=== PATIENT | male | born 1970 | race Caucasian/White ===

== ENCOUNTER 2018-09-16 18:30 | Emergency (ER) | payer BC, SELFPAY ==
[2018-09-16 18:41] VITALS: BP 112/49; PULSE 60; RESP 16; TEMP 36.6; O2SAT 100
--- NOTE | 2018-09-16 18:47 | PC.NURSE ---
pt recently traveled by car from [place]. Pt c/o right upper leg/groin pain. Pt felt SOB prior to having syncopal episode [employer]. Pt has significant cardiac hx with valve replacement. Pt takes coumadin.
--- NOTE | 2018-09-16 19:02 | DI.CT.S_ITS ---
PROCEDURE: CT HEAD/BRAIN WO CON INDICATIONS: syncope on coumadin hit head TECHNIQUE: Noncontrast 4.5 mm thick angled axial sections acquired from the foramen magnum to the vertex, with coronal and sagittal reformats. For radiation dose reduction, the following was used: automated exposure control, adjustment of mA and/or kV according to patient size. COMPARISON: None. FINDINGS: Image quality: Excellent. CSF spaces: Basal cisterns are patent. No extra-axial fluid collections. Ventricles are normal in size and shape. Brain: No midline shift. No intracranial masses or hemorrhage. Louis-white matter interface is normal. Skull and face: Calvarium and visualized facial bones are intact, without suspicious lesions. Sinuses: Visualized sinuses and mastoids are clear. IMPRESSION: No acute intracranial process. Dictated by: Issa Emmanuel M.D. on 09/16/2018 at 20:24 Approved by: Issa Emmanuel M.D. on 09/16/2018 at 20:26
--- NOTE | 2018-09-16 19:02 | DI.US.S_ITS ---
PROCEDURE: US PERIPH VENOUS LOW EXTREM RT INDICATIONS: RIGHT LEG PAIN TECHNIQUE: Real-time imaging, as well as color and pulse Doppler interrogation, were performed of the lower extremity deep veins from the inguinal ligament to the popliteal fossa. COMPARISON: None. FINDINGS: The common femoral, femoral and popliteal veins are normally compressible, and free of intraluminal thrombus. Color and pulse Doppler demonstrate normal phasic intraluminal flow. There is normal augmentation response to distal compression maneuver. IMPRESSION: No evidence of deep venous thrombosis. Dictated by: Issa Emmanuel M.D. on 09/16/2018 at 20:26 Approved by: Issa Emmanuel M.D. on 09/16/2018 at 20:27
--- NOTE | 2018-09-16 19:02 | DI.CT.S_ITS ---
PROCEDURE: CT ANGIO CHEST ABDOMEN PELVIS INDICATIONS: syncope, marfans, TECHNIQUE: Precontrast 5 mm thick sections acquired from the lung apices to the iliac crests. After the administration of intravenous contrast, 2.5 mm thick sections again acquired from the lung apices to the iliac crests. Maximum intensity projection (MIP) oblique sagittal and coronal reformats were then acquired. For radiation dose reduction, the following was used: automated exposure control. COMPARISON: None. FINDINGS: Image quality: Excellent. AORTA: No evidence of aortic aneurysm, dissection or periaortic hemorrhage. CHEST: Lungs and pleura: No acute consolidation.. No pleural effusions or pneumothorax. Central and peripheral airways are patent and normal in caliber. Mediastinum: Heart size is normal. No pericardial effusion. No mediastinal or hilar adenopathy by size criteria. Central pulmonary arteries are normal in size. Esophagus is normal in caliber. No hiatal hernias. Bones and chest wall: No axillary adenopathy by size criteria. Thyroid gland negative. No suspicious bony lesions. No vertebral body compression fractures. ABDOMEN: Vasculature: Celiac trunk and mesenteric arteries are patent. Renal arteries are also patent. Solid organs: Liver is normal in size and enhancement. Gallbladder unremarkable. Biliary system is non dilated. Pancreas enhances normally. Spleen is normal in size and enhancement. No adrenal nodules. Both kidneys are normal in size and enhancement, without hydronephrosis. Peritoneum and bowel: No free fluid or air. Bowel loops are normal in caliber and wall thickness. Nodes and vessels: No retroperitoneal or mesenteric adenopathy by size criteria. Inferior vena cava is normal in morphology. Miscellaneous: No ventral hernias. PELVIS: Genitourinary: Bladder wall thickness is normal. Miscellaneous: No inguinal hernias or adenopathy. No ventral hernias. There is fluid/blood surrounding the right iliopsoas muscle, which is enlarged and there is contrast extravasation keeping with active bleeding for example image 229 series 4, image 220 series 4. Bones: No suspicious bony lesions. No vertebral body compression fractures. IMPRESSION: Right iliopsoas intramuscular hematoma with CT evidence of active bleeding. Surrounding anterior-fascial fluid/blood. Findings were personally telephoned and discussed with Dr. Ornelas in the emergency department 09/16/18. No evidence of aortic aneurysm. No periaortic hemorrhage seen. Dictated by: Issa Emmanuel M.D. on 09/16/2018 at 20:47 Approved by: Issa Emmanuel M.D. on 09/16/2018 at 20:56
--- NOTE | 2018-09-16 19:07 | DI.US.S_ITS ---
PROCEDURE: US ARTERIAL DUPLEX LE RT INDICATIONS: PAIN IN THIGH TECHNIQUE: Color and pulse Doppler interrogation was performed of the right lower extremity arterial system, with image documentation. COMPARISON: None. FINDINGS: Common femoral artery: 143 cm/sec, with triphasic flow. Deep femoral artery: 122 cm/sec, with triphasic flow. Proximal superficial femoral artery: 148 cm/sec, with triphasic flow. Mid superficial femoral artery: 116 cm/sec, with triphasic flow. Distal superficial femoral artery: 82 cm/sec, with triphasic flow. Popliteal artery: 78 cm/sec, with triphasic flow. Posterior tibial artery: 76 cm/sec, with biphasic flow. Anterior tibial artery/dorsalis pedis: 78 cm/sec, with biphasic flow. Louis-scale imaging description: No plaque identified IMPRESSION: No evidence of focal stenosis. Dictated by: Issa Emmanuel M.D. on 09/16/2018 at 20:27 Approved by: Issa Emmanuel M.D. on 09/16/2018 at 20:29
--- NOTE | 2018-09-16 19:18 | ED.SYNCOPE ---
HPI - Syncope General Chief Complaint: Syncope Stated Complaint: LIGHT HEADED/DIZZY/COLLAPSED Time Seen by Provider: 09/16/18 18:42 Source: patient Mode of arrival: ambulatory Limitations: no limitations History of Present Illness HPI narrative: Patient is a 48-year-old male who presents with right leg pain. He has a history of Marfans and aortic valve replacement x2 on Coumadin, drove up from [place] today when he started having increasing right thigh pain. He denies any numbness or tingling in his foot he was always able to drive input on the gas pedal. When I got home this afternoon there unpacking the car he got extremely dizzy headed wanted to sit down. His made him get back up at which point he fell hitting his head and passed out for about 45 seconds. He denies any injury from the fall his bigger complaint is that he can't lift his right leg. He can move his knee and his foot however as soon as he engages his hip flexors is he has extreme pain. He has not had any fever or chills. He has no numbness or tingling in his leg. He has pain in 1 particular spot. He apparently pushed a Jeep or pulled he does not remember straining himself. -: second(s) Prodromal symptoms: palpitations, shortness of breath and diaphoresis Witnessed: yes - by bystander Injuries sustained associated with event: none Current symptoms: back to baseline Related Data Allergies Allergy/AdvReac Type Severity Reaction Status Date / Time No Known Drug Allergies Allergy Verified 09/16/18 18:45 Review of Systems Review of Systems ROS Unobtainable: All systems reviewed & are unremarkable except as noted in HPI and below Constitutional Denies chills, Denies fatigue, Denies fever(s), Denies lethargy and Denies weakness Eyes Denies change in vision, Denies eye discharge, Denies irritation and Denies loss of vision Cardiovascular Reports as per HPI, Reports syncope, Reports rapid heart rate, Denies dyspnea and Denies dyspnea on exertion Respiratory Denies cough, Denies dyspnea, Denies dyspnea on exertion and Denies wheezing Gastrointestinal Gastrointestinal: Denies abdominal pain, Denies change in bowel habits, Denies diarrhea, Denies nausea and Denies vomiting Musculoskeletal Reports as per HPI Comments: right thigh pain Integumentary/Breasts Denies pruritus, Denies erythema, Denies rash and Denies wounds Neurologic Denies confusion, Reports syncope, Denies loss of vision and Denies weakness Psychiatric Denies anxiety, Denies confusion, Denies depression, Denies homicidal ideation and Denies suicidal ideation Endocrine Denies fatigue and Denies flushing Allergic/Immunologic Denies wheezing [facility] Medical History (Updated 09/17/18 @ 01:32 by Janet Wagner DO) Marfan syndrome (Acute) Surgical History (Updated 09/17/18 @ 01:32 by Janet Wagner DO) H/O aortic valve replacement (Acute) Social History (Updated 09/17/18 @ 01:32 by Janet Wagner DO) marital status: household members: spouse Smoking Status: Never smoker alcohol intake: never substance use type: does not use Social History (Updated 09/17/18 @ 01:32 by Janet Wagner DO) marital status: household members: spouse Smoking Status: Never smoker alcohol intake: never substance use type: does not use Exam Initial Vital Signs Initial Vital Signs: Vital Signs Temperature 97.9 F 09/16/18 18:41 Pulse Rate 60 09/16/18 18:41 Respiratory Rate 16 09/16/18 18:41 Blood Pressure 112/49 L 09/16/18 18:41 Pulse Oximetry 100 09/16/18 18:41 GENERAL: He is a thin tall male slightly pale alert oriented x3 HEENT: Head atraumatic, no abrasions or contusions no depression EOMI, pupils reactive, face symmetric NECK: No vertebral tenderness no step-offs full range of motion neck is supple no JVD CARDIOVASCULAR: Regular rate and rhythm without murmurs, rubs or gallops. Vertical scar noted along sternum RESPIRATORY: Breath sounds equal bilaterally, no wheezes rales or rhonchi. ABDOMEN: Soft, nontender. Normoactive bowel sounds all 4 quadrants. No guarding or rebound. : No CVA tenderness EXTREMITIES: Normal range of motion, no clubbing or edema. Neurovascularly intact Tender right upper anterior thigh. No swelling no erythema no laceration. Strong femoral pulse. Strong distal pedal pulse. No pain with internal or external hip rotation. Knee is stable. NEUROLOGICAL: Alert and oriented x4.Normal gait and speech. Cranial nerves II through XII grossly intact. neonatal intensive care unit nurse strength equal bilaterally SKIN: Warm, dry, no laceration, no petechiae, no rashes or lesions. Procedures Orthopedic Splinting/Casting Injury #1: Side: right Lower Extremity Injury Location: upper leg Lower Extremity Immobilizer: Raymundo wrap Post splinting neuro exam: intact Post splinting vascular exam: intact Placed by: Nursing Course Orders Ordered: ED Orders 09/16/18 18:30 Complete Blood Count AUTO DIFF Stat Comprehensive Metabolic Panel Stat Prothrombin Time INR Stat Troponin & CK Cardiac Panel Stat 09/16/18 19:02 CT angio chest abdomen pelvis Stat CT head/brain wo con Stat US periph venous low extrem rt Stat 09/16/18 19:07 US arterial duplex LE RT Stat Discontinued Medications Sodium Chloride (Normal Saline 0.9%) 1,000 mls @ 1,000 mls/hr IV BOLUS ONE Stop: 09/16/18 20:01 Last Admin: 09/16/18 19:21 Dose: 1,000 mls/hr Vital Signs - 8 hr 09/16/18 18:41 09/16/18 19:30 09/16/18 20:50 Temperature 97.9 F Pulse Rate 60 64 71 Respiratory Rate 16 19 17 Blood Pressure 112/49 L Blood Pressure [Right Arm] 123/59 L 111/48 L Pulse Oximetry 100 99 97 09/16/18 21:30 09/16/18 21:42 Temperature Pulse Rate 74 77 Respiratory Rate 18 19 Blood Pressure 122/85 Blood Pressure [Right Arm] 122/55 L Pulse Oximetry 98 97 MDM - Syncope Lab Data Attestation: I reviewed the patient's lab results. Result diagrams: 09/16/18 18:30 09/16/18 18:30 Lab Results 09/16/18 09/16/18 09/16/18 Range/Units 18:30 18:30 18:30 WBC 9.9 (4.5-11.0) X10^3/uL RBC 5.03 (4.5-5.9) X10^6/uL Hgb 14.6 (13.5-17.5) g/dL Hct 43.4 (41-53) % MCV 86.2 (80-100) fL MCH 29.1 (26-34) PG MCHC 33.7 (30-36) % RDW 13.6 (11.6-14.8) % Plt Count 155 (150-400) X10^3/uL Neut % (Auto) 71.4 (50-75) % Lymph % (Auto) 16.0 L (25-40) % [place] % (Auto) 10.9 (3-14) % Eos % (Auto) 1.5 L (2-4) % Baso % (Auto) 0.2 (0-2) % Neut # (Auto) 7100 H (4492-5115) /uL Lymph # (Auto) 1600 (9976-7787) /uL [place] # (Auto) 1100 H (0-900) /uL Eos # (Auto) 200 (0-450) /uL Baso # (Auto) 0 (0-100) /uL PT 37.6 H (10.1-12.7) SECONDS INR 3.2 H (0.9-1.3) Sodium 139 (137-145) mmol/L Potassium 3.9 (3.4-5.1) mmol/L Chloride 100 (98-107) mmol/L Carbon Dioxide 28 (22-32) mmol/L BUN 16 (9-20) mg/dL Creatinine 0.90 (0.66-1.25) mg/dL Estimated GFR > 60.0 (>60) mL/min BUN/Creatinine Ratio 17.8 (6-22) Glucose 127 H (70-100) mg/dL Calcium 8.9 (8.4-10.2) mg/dL Total Bilirubin 0.9 (0.2-1.3) mg/dL AST 46 (17-59) IU/L ALT 31 (21-72) IU/L Alkaline Phosphatase 87 (38-126) U/L Total Creatine Kinase 231 H (55-170) U/L CK-MB (CK-2) 2.67 H (<2.37) ng/mL CK-MB (CK-2) Rel Index 1.2 L (1.5-5.0) % Troponin I < 0.012 (0.01-0.034) ng/mL Total Protein 7.8 (6.3-8.2) g/dL Albumin 4.5 (3.5-5.0) g/dL Globulin 3.3 (1.7-4.1) g/dL Albumin/Globulin Ratio 1.4 (1.0-2.8) Point of Care Testing Glucose POC [address] scan - head: Radiologist's impression: PROCEDURE: CT HEAD/BRAIN WO CON INDICATIONS: syncope on coumadin hit head TECHNIQUE: Noncontrast 4.5 mm thick angled axial sections acquired from the foramen magnum to the vertex, with coronal and sagittal reformats. For radiation dose reduction, the following was used: automated exposure control, adjustment of mA and/or kV according to patient size. COMPARISON: None. FINDINGS: Image quality: Excellent. CSF spaces: Basal cisterns are patent. No extra-axial fluid collections. Ventricles are normal in size and shape. Brain: No midline shift. No intracranial masses or hemorrhage. Louis-white matter interface is normal. Skull and face: Calvarium and visualized facial bones are intact, without suspicious lesions. Sinuses: Visualized sinuses and mastoids are clear. IMPRESSION: No acute intracranial process. Dictated by: Issa Emmanuel M.D. on 09/16/2018 at 20:24 CT Angio chest/ab/pelvis: Radiologist's impression: PROCEDURE: CT ANGIO CHEST ABDOMEN PELVIS INDICATIONS: syncope, marfans, TECHNIQUE: Precontrast 5 mm thick sections acquired from the lung apices to the iliac crests. After the administration of intravenous contrast, 2.5 mm thick sections again acquired from the lung apices to the iliac crests. Maximum intensity projection (MIP) oblique sagittal and coronal reformats were then acquired. For radiation dose reduction, the following was used: automated exposure control. COMPARISON: None. FINDINGS: Image quality: Excellent. AORTA: No evidence of aortic aneurysm, dissection or periaortic hemorrhage. CHEST: Lungs and pleura: No acute consolidation.. No pleural effusions or pneumothorax. Central and peripheral airways are patent and normal in caliber. Mediastinum: Heart size is normal. No pericardial effusion. No mediastinal or hilar adenopathy by size criteria. Central pulmonary arteries are normal in size. Esophagus is normal in caliber. No hiatal hernias. Bones and chest wall: No axillary adenopathy by size criteria. Thyroid gland negative. No suspicious bony lesions. No vertebral body compression fractures. ABDOMEN: Vasculature: Celiac trunk and mesenteric arteries are patent. Renal arteries are also patent. Solid organs: Liver is normal in size and enhancement. Gallbladder unremarkable. Biliary system is non dilated. Pancreas enhances normally. Spleen is normal in size and enhancement. No adrenal nodules. Both kidneys are normal in size and enhancement, without hydronephrosis. Peritoneum and bowel: No free fluid or air. Bowel loops are normal in caliber and wall thickness. Nodes and vessels: No retroperitoneal or mesenteric adenopathy by size criteria. Inferior vena cava is normal in morphology. Miscellaneous: No ventral hernias. PELVIS: Genitourinary: Bladder wall thickness is normal. Miscellaneous: No inguinal hernias or adenopathy. No ventral hernias. There is fluid/blood surrounding the right iliopsoas muscle, which is enlarged and there is contrast extravasation keeping with active bleeding for example image 229 series 4, image 220 series 4. Bones: No suspicious bony lesions. No vertebral body compression fractures. IMPRESSION: Right iliopsoas intramuscular hematoma with CT evidence of active bleeding. Surrounding anterior-fascial fluid/blood. Findings were personally telephoned and discussed with Dr. Ornelas in the emergency department 09/16/18. No evidence of aortic aneurysm. No periaortic hemorrhage seen. Dictated by: Issa Emmanuel M.D. on 09/16/2018 at 20:47 Venous US: Radiologist's impression: PROCEDURE: US PERIPH VENOUS LOW EXTREM RT INDICATIONS: RIGHT LEG PAIN TECHNIQUE: Real-time imaging, as well as color and pulse Doppler interrogation, were performed of the lower extremity deep veins from the inguinal ligament to the popliteal fossa. COMPARISON: None. FINDINGS: The common femoral, femoral and popliteal veins are normally compressible, and free of intraluminal thrombus. Color and pulse Doppler demonstrate normal phasic intraluminal flow. There is normal augmentation response to distal compression maneuver. IMPRESSION: No evidence of deep venous thrombosis. Dictated by: Issa Emmanuel M.D. on 09/16/2018 at 20:26 arterial dupplex: Radiologist's impression: PROCEDURE: US ARTERIAL DUPLEX LE RT INDICATIONS: PAIN IN THIGH TECHNIQUE: Color and pulse Doppler interrogation was performed of the right lower extremity arterial system, with image documentation. COMPARISON: None. FINDINGS: Common femoral artery: 143 cm/sec, with triphasic flow. Deep femoral artery: 122 cm/sec, with triphasic flow. Proximal superficial femoral artery: 148 cm/sec, with triphasic flow. Mid superficial femoral artery: 116 cm/sec, with triphasic flow. Distal superficial femoral artery: 82 cm/sec, with triphasic flow. Popliteal artery: 78 cm/sec, with triphasic flow. Posterior tibial artery: 76 cm/sec, with biphasic flow. Anterior tibial artery/dorsalis pedis: 78 cm/sec, with biphasic flow. Louis-scale imaging description: No plaque identified IMPRESSION: No evidence of focal stenosis. Dictated by: Issa Emmanuel M.D. on 09/16/2018 at 20:27 Approved by: Issa Emmanuel M.D. on 09/16/2018 at 20:29 ECG Data Attestation: I personally reviewed and interpreted this ECG as follows: Prior ECG tracings: not available for review Interpretation: Rate 59 AK interval 149 no priors to compare some artifact noted. MDM Narrative Medical decision making narrative: The patient's biggest complaint seems to be pain in his thigh. He does not remember injuring it while moving the jeep but has quite a bit of pain which has progressively gotten worse. CT angio reveals that he does have some active bleeding and contusion noted. he does not have any sign of contusion anteriorly. Although he is quite tender. He is afebrile there is no abscess. He has no dissection, and no PE. His syncopal episode sounds like a vasovagal reaction. I discussed with he and his if he is feeling like he might pass out he needs to stay sitting instead of stand up. An Raymundo wrap was placed to help apply some pressure to stop the bleeding. He is on Coumadin. I suspect that his leg will get worse before it gets better. Discharge Plan Departure Patient Disposition: Home Clinical Impression: Vasovagal syncope Contusion Qualifiers: Encounter type: initial encounter Contusion area: thigh Laterality: right Qualified Code(s): S70.11XA - Contusion of right thigh, initial encounter Discharge Date/Time: 09/16/18 21:43 Interventions: ED Discharge Assessment Last Done: 09/16/18 21:42 Instructions: DI for Syncope in Adults (Fainting), DI for Contusion Activity Restrictions/Additional Instructions: *You have been diagnosed with vasovagal syncopal reaction. And right thigh contusion. *What to do: Apply pressure on leg to stop some bleeding. Apply ice, 20 minutes at a time *Continue to take medications as directed *Follow up with your primary care provider in 2-3 days *Return to ER if you should have recurrent syncopal episode, chest pain back pain, numbness or tingling in legs, increasing weakness or any new, worsening or concerning symptoms Stand Alone Forms: Work Release Note
[2018-09-16 19:21] LABS: INR 3.2 (0.9-1.3); Prothrombin Time 37.6 SECONDS (10.1-12.7)
[2018-09-16] MEDS: SODIUM CHLORIDE 0.9% 1,000 ML 1000 ML IV (19:21)
[2018-09-16 19:22] LABS: Add Manual Diff / Slide Review NO; Basophils Absolute Auto 0 /uL (0-100); Basophils Percent Auto 0.2 % (0-2); Eosinophils Absolute Auto 200 /uL (0-450); Eosinophils Percent Auto 1.5 % (2-4); Hematocrit 43.4 % (41-53); Hemoglobin 14.6 g/dL (13.5-17.5); Lymphocytes Absolute Auto 1600 /uL (1100-4500); Mean Corpuscular HGB Conc 33.7 % (30-36); Mean Corpuscular Hemoglobin 29.1 PG (26-34); Mean Corpuscular Volume 86.2 fL (80-100); Monocytes Absolute Auto 1100 /uL (0-900); Monocytes Percent Auto 10.9 % (3-14); Neutrophils Absolute Auto 7100 /uL (1500-7000); Neutrophils Percent Auto 71.4 % (50-75); Platelet Count 155 X10^3/uL (150-400); Red Blood Cell Count 5.03 X10^6/uL (4.5-5.9); Red Cell Distribution Width 13.6 % (11.6-14.8); White Blood Cell Count 9.9 X10^3/uL (4.5-11.0)
[2018-09-16 19:24] LABS: Alanine Aminotransferase 31 IU/L (21-72); Albumin 4.5 g/dL (3.5-5.0); Albumin Globulin Ratio 1.4 (1.0-2.8); Alkaline Phosphatase 87 U/L (38-126); Aspartate Aminotransferase 46 IU/L (17-59); BUN Creatinine Ratio 17.8 (6-22); Bilirubin Total 0.9 mg/dL (0.2-1.3); Blood Urea Nitrogen 16 mg/dL (9-20); Calcium 8.9 mg/dL (8.4-10.2); Carbon Dioxide 28 mmol/L (22-32); Chloride 100 mmol/L (98-107); Creatine Kinase 231 U/L (55-170); Estimated Glomerular Filt Rate > 60.0 mL/min (>60); Globulin 3.3 g/dL (1.7-4.1); Glucose 127 mg/dL (70-100); Potassium 3.9 mmol/L (3.4-5.1); Sodium 139 mmol/L (137-145); Total Protein 7.8 g/dL (6.3-8.2)
[2018-09-16 19:30] VITALS: BP 123/59; PULSE 64; RESP 19; O2SAT 99
[2018-09-16 19:36] LABS: Troponin I < 0.012 ng/mL (0.01-0.034)
[2018-09-16 19:39] LABS: CKMB % Relative Index 1.2 % (1.5-5.0); Creatine Kinase MB 2.67 ng/mL (<2.37); HEMOLYSIS 16 (0-50)
[2018-09-16 20:50] VITALS: BP 111/48; PULSE 71; RESP 17; O2SAT 97
[2018-09-16 21:30] VITALS: BP 122/55; PULSE 74; RESP 18; O2SAT 98
[2018-09-16 21:42] VITALS: BP 122/85; PULSE 77; RESP 19; O2SAT 97
--- NOTE | 2018-10-13 20:35 | PC.NURSE ---
Late entry: Pt received 1000ml of normal saline started on 09/16/18 at 1921. Dose was completed at 2034.
== END 2018-09-16 21:43 | disposition home or self-care (01) ==
PROVIDERS: Emergency Provider Emergency Medicine
DX: R55 Syncope and collapse (principal); W19.XXXA Unspecified fall, initial encounter; M79.661 Pain in right lower leg; Z95.2 Presence of prosthetic heart valve; Z79.01 Long term (current) use of anticoagulants
CPT/HCPCS: 36591; 70450; 71275; 74174; 80053; 82550; 82553; 82962; 84484; 85025; 85610; 93005; 93041; 93926; 93971; 96360; 99283; 99285; Q9967

== ENCOUNTER → 2018-09-18 12:16 | Outpatient (CLI) | payer BC, SELFPAY ==
[2018-09-18 13:33] LABS: Add Manual Diff / Slide Review NO; Basophils Absolute Auto 0 /uL (0-100); Basophils Percent Auto 0.3 % (0-2); Eosinophils Absolute Auto 200 /uL (0-450); Hematocrit 43.2 % (41-53); Hemoglobin 14.4 g/dL (13.5-17.5); Lymphocytes Absolute Auto 1500 /uL (1100-4500); Lymphocytes Percent Auto 17.7 % (25-40); Mean Corpuscular HGB Conc 33.4 % (30-36); Mean Corpuscular Hemoglobin 29.1 PG (26-34); Mean Corpuscular Volume 87.1 fL (80-100); Monocytes Absolute Auto 1100 /uL (0-900); Monocytes Percent Auto 13.2 % (3-14); Neutrophils Absolute Auto 5600 /uL (1500-7000); Neutrophils Percent Auto 66.8 % (50-75); Platelet Count 151 X10^3/uL (150-400); Red Blood Cell Count 4.96 X10^6/uL (4.5-5.9); Red Cell Distribution Width 13.4 % (11.6-14.8); White Blood Cell Count 8.4 X10^3/uL (4.5-11.0)
== END ==
PROVIDERS: Visit Provider Internal Medicine
DX: S70.11XA Contusion of right thigh, initial encounter (principal)
CPT/HCPCS: 36415; 85025

== ENCOUNTER → 2018-10-02 10:35 | Outpatient (CLI) | payer BC, SELFPAY ==
[2018-10-02 11:43] LABS: Prothrombin Time 23.6 SECONDS (10.1-12.7)
== END ==
PROVIDERS: Visit Provider Internal Medicine
DX: I34.9 Nonrheumatic mitral valve disorder, unspecified (principal)
CPT/HCPCS: 36415; 85610

== ENCOUNTER → 2019-07-26 10:38 | Outpatient (CLI) | payer OTHER, SELFPAY ==
[2019-07-26 11:22] LABS: Alanine Aminotransferase 22 IU/L (<50); Albumin 4.3 g/dL (3.5-5.0); Albumin Globulin Ratio 1.3 (1.0-2.8); Alkaline Phosphatase 81 U/L (38-126); Aspartate Aminotransferase 34 IU/L (17-59); BUN Creatinine Ratio 25.7 (6-22); Bilirubin Total 0.5 mg/dL (0.2-1.3); Blood Urea Nitrogen 18 mg/dL (9-20); Carbon Dioxide 34 mmol/L (22-32); Chloride 104 mmol/L (98-107); Cholesterol 173 mg/dL (140-199); Estimated Glomerular Filt Rate > 60.0 mL/min (>60); Globulin 3.3 g/dL (1.7-4.1); Glucose 89 mg/dL (70-100); HDL Cholesterol 27 mg/dL (40-60); HEMOLYSIS < 15 (0-50); LDL Cholesterol Calculated 112 mg/dL (<100); Potassium 4.4 mmol/L (3.4-5.1); Sodium 141 mmol/L (137-145); Total Protein 7.6 g/dL (6.3-8.2); Triglycerides 172 mg/dL (35-150)
== END ==
PROVIDERS: PCP Internal Medicine; Referring Provider Internal Medicine; Visit Provider Internal Medicine
DX: I10 Essential (primary) hypertension (principal)
CPT/HCPCS: 36415; 80053; 80061

== ENCOUNTER → 2020-06-21 09:21 | Outpatient (CLI) | payer OTHER, SELFPAY ==
[2020-06-21 10:04] LABS: Add Manual Diff / Slide Review NO; Basophils Absolute Auto 0 /uL (0-100); Basophils Percent Auto 0.6 % (0-2); Eosinophils Absolute Auto 100 /uL (0-450); Eosinophils Percent Auto 3.4 % (2-4); Hematocrit 40.3 % (41-53); Hemoglobin 13.6 g/dL (13.5-17.5); Lymphocytes Absolute Auto 1100 /uL (1100-4500); Lymphocytes Percent Auto 26.6 % (25-40); Mean Corpuscular HGB Conc 33.8 % (30-36); Mean Corpuscular Hemoglobin 29.5 PG (26-34); Mean Corpuscular Volume 87.3 fL (80-100); Monocytes Absolute Auto 500 /uL (0-900); Monocytes Percent Auto 12.1 % (3-14); Neutrophils Absolute Auto 2400 /uL (1500-7000); Neutrophils Percent Auto 57.3 % (50-75); Platelet Count 140 X10^3/uL (150-400); Red Blood Cell Count 4.62 X10^6/uL (4.5-5.9); Red Cell Distribution Width 13.2 % (11.6-14.8); White Blood Cell Count 4.2 X10^3/uL (4.5-11.0)
[2020-06-21 10:29] LABS: BUN Creatinine Ratio 16.2 (6-22); Blood Urea Nitrogen 12 mg/dL (9-20); Calcium 8.8 mg/dL (8.4-10.2); Carbon Dioxide 35 mmol/L (22-32); Chloride 103 mmol/L (98-107); Cholesterol 190 mg/dL (140-199); Estimated Glomerular Filt Rate > 60.0 mL/min (>60); Glucose 91 mg/dL (70-100); HDL Cholesterol 36 mg/dL (40-60); HEMOLYSIS < 15 (0-50); LDL Cholesterol Calculated 136 mg/dL (<100); Potassium 4.1 mmol/L (3.4-5.1); Sodium 139 mmol/L (137-145); Triglycerides 88 mg/dL (35-150)
== END ==
PROVIDERS: PCP Family Medicine; Referring Provider Family Medicine; Visit Provider Family Medicine
DX: Z13.220 Encounter for screening for lipoid disorders (principal)
CPT/HCPCS: 36415; 80048; 80061; 85025

== ENCOUNTER → 2022-12-03 06:45 | Outpatient (CLI) | payer OTHER, SELFPAY ==
--- NOTE | 2022-12-03 | DI.CT.S_ITS ---
PROCEDURE: CT ANGIO CHEST ABDOMEN PELVIS INDICATIONS: MARFAN SYNDROME/MECHANICAL AORTIC VALVE TECHNIQUE: Precontrast 5 mm thick sections acquired from the lung apices to the iliac crests. After the administration of intravenous contrast, 2.5 mm thick sections again acquired from the lung apices to the iliac crests. Maximum intensity projection (MIP) oblique sagittal and coronal reformats were then acquired. For radiation dose reduction, the following was used: automated exposure control. COMPARISON: [facility], CT, CT ANGIO CHEST ABDOMEN PELVIS, 09/16/2018, 20:04. FINDINGS: Image quality: Excellent. AORTA: Aortic valve replacement has been performed. The thoracoabdominal aorta is normal in caliber with no evidence of dissection, aneurysm, or significant stenosis. CHEST: Lungs and pleura: No acute airspace opacities. No pleural effusions or pneumothorax. Central and peripheral airways are patent and normal in caliber. Mediastinum: Heart size is normal. There is mild calcification of the coronary vasculature. No pericardial effusion. No mediastinal or hilar adenopathy by size criteria. Central pulmonary arteries are normal in size. Esophagus is normal in caliber. No hiatal hernias. Bones and chest wall: Median sternotomy. No axillary adenopathy by size criteria. Thyroid gland is within normal limits . No suspicious bony lesions. No vertebral body compression fractures. ABDOMEN: Vasculature: Celiac trunk and mesenteric arteries are patent. Renal arteries are also patent. Solid organs: Liver is normal in size and enhancement. Gallbladder is contracted . Biliary system is non dilated. Pancreas enhances normally. Spleen is normal in size and enhancement. No adrenal nodules. Both kidneys are normal in size and enhancement, without hydronephrosis. Peritoneum and bowel: No free fluid or air. Bowel loops are normal in caliber and wall thickness. Nodes and vessels: No retroperitoneal or mesenteric adenopathy by size criteria. Inferior vena cava is normal in morphology. Miscellaneous: No ventral hernias. PELVIS: Genitourinary: Bladder wall thickness is normal. Miscellaneous: No inguinal hernias or adenopathy. No ventral hernias. Bones: No suspicious bony lesions. No vertebral body compression fractures. IMPRESSION: 1. Postsurgical sequelae. 2. No evidence of thoracoabdominal aortic aneurysm nor dissection. Dictated by: Cj Martin M.D. on 12/03/2022 at 9:40 Transcribed by: GINNY on 12/03/2022 at 9:44 Approved by: Cj Martin M.D. on 12/03/2022 at 16:37
== END ==
PROVIDERS: PCP Family Medicine; Referring Provider Nurse Practitioner; Visit Provider Nurse Practitioner
DX: I71.22 Aneurysm of the aortic arch, without rupture (principal); Z95.2 Presence of prosthetic heart valve
CPT/HCPCS: 71275; 74174; Q9967

== ENCOUNTER → 2023-08-31 14:10 | Outpatient (CLI) | payer OTHER, SELFPAY ==
[2023-08-31 14:35] LABS: Hematocrit 39.6 % (41-53); Hemoglobin 13.5 g/dL (13.5-17.5); Mean Corpuscular Hemoglobin 29.8 PG (26-34); Mean Corpuscular Volume 87.5 fL (80-100); Platelet Count 142 X10^3/uL (150-400); Red Blood Cell Count 4.53 X10^6/uL (4.5-5.9); Red Cell Distribution Width 13.2 % (11.6-14.8); White Blood Cell Count 6.2 X10^3/uL (4.5-11.0)
[2023-08-31 20:27] LABS: Alanine Aminotransferase 42 IU/L (<50); Albumin Globulin Ratio 1.2 (1.0-2.8); Alkaline Phosphatase 73 U/L (38-126); Aspartate Aminotransferase 48 IU/L (17-59); BUN Creatinine Ratio 24.5 (6-22); Bilirubin Total 0.6 mg/dL (0.2-1.3); Blood Urea Nitrogen 23 mg/dL (9-20); Calcium 9.4 mg/dL (8.4-10.2); Carbon Dioxide 32 mmol/L (22-32); Chloride 104 mmol/L (98-107); Estimated Glomerular Filt Rate > 60 mL/min (>60); Globulin 3.4 g/dL (1.7-4.1); Glucose 79 mg/dL (70-100); HEMOLYSIS < 15 (0-50); Potassium 3.8 mmol/L (3.4-5.1); Sodium 140 mmol/L (137-145); Total Protein 7.4 g/dL (6.3-8.2)
== END ==
LOC: LAB 14:12
PROVIDERS: PCP Family Medicine; Referring Provider Nurse Practitioner; Visit Provider Nurse Practitioner
DX: Z95.2 Presence of prosthetic heart valve (principal)
CPT/HCPCS: 36415; 80053; 85027

== ENCOUNTER → 2024-12-20 14:15 | Outpatient (CLI) | payer OTHER, SELFPAY ==
[2024-12-20 14:39] LABS: Hematocrit 38.0 % (41-53); Hemoglobin 13.3 g/dL (13.5-17.5); Mean Corpuscular HGB Conc 35.0 % (30-36); Mean Corpuscular Hemoglobin 29.8 PG (26-34); Mean Corpuscular Volume 85.1 fL (80-100); Platelet Count 154 X10^3/uL (150-400)
[2024-12-20 15:11] LABS: Blood Urea Nitrogen 24 mg/dL (9-20); Calcium 9.1 mg/dL (8.4-10.2); Carbon Dioxide 33 mmol/L (22-32); Chloride 103 mmol/L (98-107); Estimated Glomerular Filt Rate > 60 mL/min (>60); Glucose 77 mg/dL (70-99); HEMOLYSIS < 15 (0-50); Potassium 3.8 mmol/L (3.4-5.1); Sodium 141 mmol/L (137-145)
== END ==
PROVIDERS: PCP Family Medicine; Referring Provider Internal Medicine Cardiovascular Disease; Visit Provider Internal Medicine Cardiovascular Disease
DX: I35.9 Nonrheumatic aortic valve disorder, unspecified (principal); Q87.40 Marfan syndrome, unspecified
CPT/HCPCS: 36415; 80048; 85027